=== PATIENT | female | born 1965 | race Caucasian/White ===

== ENCOUNTER 2020-03-29 19:26 | Emergency (ER) | payer BC, OTHER ==
[2020-03-29] MEDS ORDERED: Diphtheria,Pertussis(Acell),Tetanus Vaccine 0.5 ML Syringe IM ONE (20:37)
[2020-03-29] MEDS ORDERED: Bupivacaine 0.5% 30 ML SDV INJECT PRN (21:10)
[2020-03-29] MEDS ORDERED: Lidocaine 1% 30 ML SDV INJECT ONE (21:10)
[2020-03-29] MEDS ORDERED: Amoxicillin/Clavulanate K 875-125 MG Tab PO ONE (21:36)
[2020-03-29] MEDS ORDERED: Take Home: Amoxicillin/Clavulanate K 875-125 MG Tab, 2 Tab Pack PO ONE (21:37)
--- NOTE | 2020-03-29 21:43 | EDM.PDOC ---
ED HPI GENERAL MEDICAL PROBLEM - General Stated Complaint: great toe injury Time Seen by Provider: 03/29/20 21:10 Source of Information: Reports: Patient History Limitations: Reports: No Limitations - History of Present Illness INITIAL COMMENTS - FREE TEXT/NARRATIVE: Patient comes emergency department today with complaints of an injury to her right great toe. The patient at approximately noon today was walking around the house barefooted when she accidentally kicked a watermelon with her big toe. She had sudden pain in her toe and really under her toenail and has a discoloration under the toenail. She has tried to soak it and take care of it at home although she has been unable to do so. She was able to pull a small piece of watermelon rind out from under her toenails and she wonders if she did not get more of the watermelon rind under the toenail. She is unsure of when her last tetanus shot was. No COVID exposure no COVID symptoms - Related Data Allergies Allergy/AdvReac Type Severity Reaction Status Date / Time No Known Allergies Allergy Verified 03/29/20 20:38 Home Meds: Home Meds Cholecalciferol (Vitamin D3) [Vitamin D3] 1 cap PO DAILY 06/21/19 [History] atorvaSTATin [Lipitor] 10 mg PO BEDTIME 06/21/19 [History] Amoxicillin/Potassium Clav [Augmentin 875-125 Tablet] 1 each PO BID #10 tablet 03/29/20 [Rx] Past Medical History Gastrointestinal History: Reports: Colon Polyp, Other (See Below) Other Gastrointestinal History: colon mass STILL TENDER History: Reports: Other (See Below) Other STILL TENDER History: ovarian cystectomy unilateral, bilateral Musculoskeletal History: Reports: Osteoarthritis, Other (See Below) Other Musculoskeletal History: chronic pain of left knee Psychiatric History: Reports: Anxiety Endocrine/Metabolic History: Reports: Obesity/BMI 30+ - Past Surgical History GI Surgical History: Reports: Appendectomy, Colonoscopy Review of Systems - Review of Systems Review Of Systems: Comprehensive ROS is negative, except as noted in HPI. ED EXAM, GENERAL - Physical Exam Exam: See Below Exam Limited By: No Limitations General Appearance: Alert, WD/WN, No Apparent Distress Respiratory/Chest: No Respiratory Distress, No Accessory Muscle Use Cardiovascular: Normal Peripheral Pulses Peripheral Pulses: 2+: Posterior Tibial (L), Posterior Tibial (R), Dorsalis Pedis (L), Dorsalis Pedis (R) Extremities: Normal Range of Motion, Normal Capillary Refill. No: Normal Inspection (Exam is isolated to the right great toe. The area under the great toenail of the right foot clearly has either a hematoma of blood under it or possibly some foreign material although it is more green in nature. There is a small amount of drainage coming from under the nail plate although the patient had soaked this prior to arrival. There is no overt bony deformity. She is able to flex and extend at the IP and MTP joint appropriately. CMS is intact appropriately as well. Rest of the right foot is atraumatic and unremarkable.) Neurological: Alert, Oriented, Normal Cognition, No Motor/Sensory Deficits Psychiatric: Normal Affect, Normal Mood Skin Exam: Warm, Dry, Intact, Normal Color, No Rash Course - Orders/Labs/Meds Orders: Active Orders 24 hr Category Date Time Status Vaccines to be Administered [RC] PER UNIT ROUTINE Care 03/29/20 20:38 Active Bupivacaine 0.5% [Marcaine 0.5%] Med 03/29/20 21:10 Active 30 ml INJECT ASDIRECTED PRN Medication Orders Bupivacaine HCl (Marcaine 0.5%) 30 ml INJECT ASDIRECTED PRN PRN Reason: Other Meds: Medications Generic Name Dose Route Start Last Admin Trade Name Freq PRN Reason Stop Dose Admin Bupivacaine HCl 30 ml 03/29/20 21:10 Marcaine 0.5% INJECT ASDIRECTED PRN Other Discontinued Medications Generic Name Dose Route Start Last Admin Trade Name Freq PRN Reason Stop Dose Admin Amoxicillin/Clavulanate Potassium 1 tab 03/29/20 21:36 03/29/20 21:45 Augmentin 875 Mg/125 Mg PO 03/29/20 21:37 1 tab ONETIME ONE Administration Amoxicillin/Clavulanate Potassium 1 packet 03/29/20 21:37 03/29/20 21:45 Take Home: Amox/Clavulanate 875-12, 2 Tab Pac PO 03/29/20 21:38 1 packet ONETIME ONE Administration Diphtheria/Tetanus/Acell Pertussis 0.5 ml 03/29/20 20:37 Adacel IM 03/29/20 20:38 .ONCE ONE Lidocaine HCl 30 ml 03/29/20 21:10 Xylocaine-Mpf 1% INJECT 03/29/20 21:11 ONETIME ONE - Re-Assessments/Exams Free Text/Narrative Re-Assessment/Exam: 03/29/20 22:14 Initially had concerns that this was possibly a subungual hematoma. With the usage of a cautery Bovie tip the toenail was initially lanced with alcohol and a small puncture hole was produced in the area of concern without any blood return. This points further to the likelihood of surprisingly a piece of foreign material from the watermelon got under her toenail. I explained the risk and benefits of a digital block to the patient to appropriately further evaluate the toenail. Verbal consent was obtained. Lidocaine 1% without epinephrine and bupivacaine 0.5% without epinephrine was mixed in a 50-50 fashion. The base of the right great toe on the medial and lateral aspect was cleansed with Betadine and allowed to dry the appropriate time period. After this was completed medially and laterally 2 mils of the above mixture was injected and a excellent digital block was obtained. And turned my attention to looking under the nail to identify any foreign material. With using a elevator spatula I slowly worked in from the end of the toenail and quickly identified green fibrous material that I removed from under the toenail which most likely is an aspect of the watermelon rind. I continued throughout the rest of about 60% of the lateral aspect of the toenail and removed multiple large pieces of this very similar organic appearing fibrous material. I removed all of the material that was identifiable. I then cleansed the area under the nail using a 24-gauge Angiocath and sterile water and chlorhexidine solution to irrigate the entirety of the toenail that was affected. The patient tolerated the procedure well. There is no other foreign material that is easily identified. I will patient patient on Augmentin 1 tablet p.o. twice daily for prophylactic antibiotic as this is a puncture wound under the toenail. We will have her soak her toe as well. She is comfortable with this plan and her questions are answered. Departure - Departure Time of Disposition: 21:38 Disposition: Home, Self-Care 01 Clinical Impression: Foreign body of toe of right foot Qualifiers: Encounter type: initial encounter Qualified Code(s): S90.454A - Superficial foreign body, right lesser toe(s), initial encounter - Discharge Information Prescriptions: Amoxicillin/Potassium Clav [Augmentin 875-125 Tablet] 1 each PO BID #10 tablet Instructions: Hand or Foot Foreign Body, Adult Referrals: PCP,None [Primary Care Provider] - Additional Instructions: Tylenol and or Ibuprofen as needed for pain. Soak 4 times a day for the next 5-7 days in warm/hot water [facility] soap and Epsom salts. Bacitracin and bandage until healed. Augmentin, 1 tablet twice daily for the next 5 days. First dose given in the ED. Starter pack for Tuesday from the ED and RX to [facility]. Return to the ED if new or worsening symptoms. Recheck with PCP if any concerns especially signs of infection, purulent discharge, redness increased pain. - My Orders Last 24 Hours: My Active Orders 03/29/20 21:10 Bupivacaine 0.5% [Marcaine 0.5%] 30 ml INJECT ASDIRECTED PRN - Assessment/Plan Last 24 Hours: My Active Orders 03/29/20 21:10 Bupivacaine 0.5% [Marcaine 0.5%] 30 ml INJECT ASDIRECTED PRN
== END 2020-03-29 21:51 | disposition home or self-care (01) ==
LOC: VM.ED 19:26
DX: S90.451A Superficial foreign body, right great toe, initial encounter (principal); E66.9 Obesity, unspecified; Z68.26 Body mass index [BMI] 26.0-26.9, adult; Z23 Encounter for immunization; W22.8XXA Striking against or struck by other objects, initial encounter; Y93.01 Activity, walking, marching and hiking
CPT/HCPCS: 64450; 90471; 90715; 99283; A9270; J2001; J3490; 64400

== ENCOUNTER 2021-09-04 06:48 | Day surgery (SDC) | payer BC ==
[2021-09-04] MEDS ORDERED: Propofol 200 MG/20 ML SDV ONE ×2 (07:44→08:56)
[2021-09-04] MEDS ORDERED: fentaNYL 100 MCG/2 ML SDV ONE (07:44)
[2021-09-04] MEDS: Lactated Ringers 1,000 ML IV SCH (07:51)
== END 2021-09-04 09:58 | disposition home or self-care (01) ==
LOC: VM.SDS 06:48
PROVIDERS: ATTEND Student in an Organized Health Care Education/Training Program
DX: K63.5 Polyp of colon (principal); E78.00 Pure hypercholesterolemia, unspecified; G89.29 Other chronic pain; Z79.899 Other long term (current) drug therapy; E66.9 Obesity, unspecified; Z90.49 Acquired absence of other specified parts of digestive tract; F41.9 Anxiety disorder, unspecified; Z98.890 Other specified postprocedural states; Z68.28 Body mass index [BMI] 28.0-28.9, adult
CPT/HCPCS: 00811; J2704; J3010; J7120

== ENCOUNTER 2024-05-29 14:13 | Emergency (ER) | payer BC ==
[2024-05-29 14:44] LABS: BASOPHILS PERCENT AUTO 0.5 % (0.2-1.2); EOSINOPHILS ABSOLUTE AUTO 0.2 x10^3/uL (0.0-0.5); EOSINOPHILS PERCENT AUTO 2.5 % (0.0-4.0); HEMATOCRIT 38.1 % (33.0-47.0); HEMOGLOBIN 12.8 g/dL (12.0-16.0); IMMATURE GRAN ABSOLUTE AUTO 0.01 x10^3/uL (0.00-0.07); LYMPHOCYTES ABSOLUTE AUTO 2.6 x10^3/uL (1.0-4.8); LYMPHOCYTES PERCENT AUTO 43.1 % (25.0-50.0); MEAN CORPUSCULAR HEMOGLOBIN 30.3 pg (26.0-32.0); MEAN CORPUSCULAR HGB CONC 33.6 g/dL (32.0-36.0); MEAN CORPUSCULAR VOLUME 90.1 fL (78.0-93.0); MONOCYTES ABSOLUTE AUTO 0.4 x10^3/uL (0.0-0.8); MONOCYTES PERCENT AUTO 6.4 % (2.0-11.0); NEUTROPHILS ABSOLUTE AUTO 2.9 x10^3/uL (1.8-7.7); NEUTROPHILS PERCENT AUTO 47.3 % (50.0-80.0); PLATELET COUNT,PLT 220 x10^3/uL (130-400); RED BLOOD CELL COUNT 4.23 x10^6/uL (4.00-5.50); WHITE BLOOD CELL COUNT,WBC 6.1 x10^3/uL (4.0-10.0)
[2024-05-29 14:50] LABS: APPEARANCE,URINE CLEAR (CLEAR); BILIRUBIN,URINE NEGATIVE (NEGATIVE); COLOR,URINE YELLOW (YELLOW); GLUCOSE,URINE NEGATIVE (NEGATIVE); KETONES,URINE NEGATIVE (NEGATIVE); LEUKOCYTE ESTERASE,URINE NEGATIVE (NEGATIVE); NITRITE,URINE NEGATIVE (NEGATIVE); OCCULT BLOOD,URINE NEGATIVE (NEGATIVE); PH,URINE 6.5 (5.0-8.0); PROTEIN,URINE NEGATIVE (NEGATIVE); UROBILINOGEN,URINE 0.2 EU/dL (0.2)
[2024-05-29 15:04] LABS: A/G RATIO 1.27; ALANINE AMINOTRANSFERASE,ALT 7 U/L (14-59); ALBUMIN 3.8 g/dL (3.4-5.0); ALKALINE PHOSPHATASE 68 U/L (46-116); ASPARTATE AMNIOTRANSFERASE,AST 14 U/L (15-37); BILIRUBIN TOTAL 0.5 mg/dL (0.2-1.0); BLOOD UREA NITROGEN,BUN 12 mg/dL (7-18); CALCIUM 9.6 mg/dL (8.5-10.1); CARBON DIOXIDE,CO2 29 mmol/L (21-32); CHLORIDE,CL 106 mmol/L (98-107); CREATININE 0.8 mg/dL (0.55-1.02); GLUCOSE RANDOM 108 mg/dL (70-99); POTASSIUM,K 3.8 mmol/L (3.5-5.1); PROTEIN TOTAL,TP 6.8 g/dL (6.4-8.2); SODIUM,NA 143 mmol/L (136-145)
[2024-05-29 15:23] LABS: ANION GAP 11.8 mmol/L (5-15); ESTIMATED GFR 85 mL/min (>=60)
[2024-05-29] MEDS: Ketorolac 30 MG/ML SDV IM ONE (15:46)
== END 2024-05-29 15:59 | disposition home or self-care (01) ==
LOC: VM.ED 14:13
DX: R10.12 Left upper quadrant pain (principal); E78.00 Pure hypercholesterolemia, unspecified; E66.9 Obesity, unspecified; Z90.49 Acquired absence of other specified parts of digestive tract; Z79.899 Other long term (current) drug therapy
CPT/HCPCS: 36415; 80053; 81003; 85025; 96372; 99283; 99284; J1885